=== PATIENT | female | born 1995 | race Caucasian/White ===

== ENCOUNTER 2017-07-26 22:15 | Emergency (ER) | payer BC ==
[~2017-07-26] VITALS: Ht 177.8 cm; Wt 86.4 kg
[2017-07-26 23:00] LABS: BASO % 0.3 % (0.0-2.0); EOS # 0.1 (0.0-0.7); EOS % 1.5 % (0-4.0); GRAN # 5.7 (1.4-6.5); GRAN % 71.4 % (42.2-75.2); HEMOGLOBIN 13.8 g/dl (12.5-16.0); LYMPH # 1.5 (1.2-3.4); LYMPH % 18.5 % (20.0-51.0); MEAN CELL VOLUME 85 fl (80.0-100.0); MEAN CORPUSCULAR HEMOGLOBIN 29 pg (27.0-31.0); MEAN CORPUSCULAR HGB CONC 35 g/dl (33.0-37.0); MONO # 0.6 (0.1-0.6); PLATELET COUNT 225 K/mm3 (130-400); REDCELL DISTRIBUTION WIDTH-CV 12.3 % (11.5-14.5)
[2017-07-26] MEDS ORDERED: NUVARING VAG RING VG (23:08)
[2017-07-26 23:09] VITALS: BP 126/82; TEMP 98.1
[2017-07-26 23:13] LABS: ALANINE AMINOTRANSFERASE 26 U/L (9-52); ALKALINE PHOSPHATASE 74 U/L (50-136); ANION GAP 13 mmol/L (7-16); AST,SGOT 19 U/L (15-37); BILIRUBIN,TOTAL 0.3 mg/dL (0.0-1.0); BLOOD UREA NITROGEN 12 mg/dL (7-17); CALCIUM 9.1 mg/dL (8.4-10.2); CARBON DIOXIDE 22 mmol/L (22-30); CHLORIDE 107 mmol/L (98-107); CREATININE, serum 0.84 mg/dL (0.52-1.25); GLUCOSE 94 mg/dL (74-106); POTASSIUM 3.8 mmol/L (3.4-5.0); SODIUM 142 mmol/L (137-145)
[2017-07-26 23:14] LABS: ACETAMINOPHEN < 10 ug/mL (10-30); ALCOHOL(ethanol),MEDICAL < 10 mg/dL; SALICYLATE < 1.0 mg/dL
[2017-07-26 23:19] LABS: TRICYCLIC ANTIDEPRESS URINE NEGATIVE
[2017-07-27 02:03] VITALS: PULSE 92
== END 2017-07-27 02:04 | disposition home or self-care (01) ==
LOC: COL.ER 22:15
PROVIDERS: Emergency Medicine
DX: F32.9 Major depressive disorder, single episode, unspecified (principal); F41.9 Anxiety disorder, unspecified; F12.90 Cannabis use, unspecified, uncomplicated

== ENCOUNTER 2018-06-24 05:47 | Emergency (ER) | payer BC ==
[~2018-06-24] VITALS: Ht 177.8 cm; Wt 90.9 kg
[~2018-06-24 05:47] MED LIST: NUVARING VAG RING VG
[2018-06-24 05:58] VITALS: BP 154/99; PULSE 105; TEMP 98.5
== END 2018-06-24 07:52 | disposition short-term general hospital (02) ==
LOC: COL.ER 05:47
DX: T74.21XA Adult sexual abuse, confirmed, initial encounter (principal)